=== PATIENT | male | born 1960 | race Caucasian/White ===

== ENCOUNTER 2017-03-07 15:55 | Emergency (ER) | payer MEDICAID ==
[~2017-03-07] VITALS: Ht 172.7 cm; Wt 81.6 kg
[2017-03-07 15:55] VITALS: BP_SYST 136
[2017-03-07] MEDS ORDERED: CEPHALEXIN 500 MG CAPSULE PO ONE (18:15)
[2017-03-07 19:22] VITALS: BP_SYST 130
== END 2017-03-07 19:25 | disposition home or self-care (01) ==
LOC: SED 15:55
DX: R04.0 Epistaxis (principal); F17.210 Nicotine dependence, cigarettes, uncomplicated; R03.0 Elevated blood-pressure reading, without diagnosis of hypertension; Z71.6 Tobacco abuse counseling
CPT/HCPCS: 99283

== ENCOUNTER 2017-03-09 16:57 | Emergency (ER) | payer MEDICAID ==
[~2017-03-09] VITALS: Ht 172.7 cm; Wt 88.5 kg
[2017-03-09 17:00] VITALS: BP_SYST 151
[2017-03-09 18:53] VITALS: BP_SYST 148
== END 2017-03-09 18:53 | disposition home or self-care (01) ==
LOC: SED 16:57
DX: R04.0 Epistaxis (principal); R05 Cough
CPT/HCPCS: 99282

== ENCOUNTER → 2021-12-21 | Day surgery (SDC) | payer MEDICAID ==
[~2021-12-21] MED LIST: MEPERIDINE 100 MG INJ. 100 MG/ML VIAL ONE; MIDAZOLAM HCL 5 MG/5 ML VIAL ONE
[2021-12-21 11:13] VITALS: BP_SYST 156
== END | disposition home or self-care (01) ==
LOC: SDS 05:57
PROVIDERS: ATTEND Internal Medicine Gastroenterology
DX: Z12.11 Encounter for screening for malignant neoplasm of colon (principal); D12.4 Benign neoplasm of descending colon; K64.9 Unspecified hemorrhoids; I10 Essential (primary) hypertension; F17.210 Nicotine dependence, cigarettes, uncomplicated; L03.113 Cellulitis of right upper limb; Z20.822 Contact with and (suspected) exposure to COVID-19
CPT/HCPCS: 45385; 87426; 36415; 88305; 99152; G0378; J2250; J2175